=== PATIENT | female | born 1950 | race Caucasian/White ===

== ENCOUNTER 2017-10-09 01:25 | Inpatient (IN) | payer MEDICARE, OTHER ==
[2017-10-09] MEDS ORDERED: LISINOPRIL 10 MG TABLET PO ONE (01:32)
--- NOTE | 2017-10-09 01:36 | ER Document Report ---
ED General - General Stated Complaint: ALTERED MENTAL STATUS Time Seen by Provider: 10/09/17 01:31 Cannot obtain history due to: Altered mental status Notes: Patient is a 66-year-old woman with a past medical history of bipolar disorder, hypertension, who presents by EMS with confusion. The patient struggles to provide any meaningful history other than to repeatedly state "help me please". Apparently she has been doing a cleanout prep for an upcoming colonoscopy. Staff from the EMS service reports that when he got to the house patient appeared somewhat confused, initial blood pressure was markedly elevated at 260 systolic. She received labetalol in the field in route to the hospital. TRAVEL OUTSIDE OF THE [place] IN LAST 30 DAYS: No - Related Data Allergies/Adverse Reactions: No Known Allergies Allergy (Verified 11/16/15 13:06) Past Medical History - General Information source: Patient, Emergency Med Personnel Cannot obtain history due to: Altered mental status - Social History Smoking Status: Never Smoker Frequency of alcohol use: None Drug Abuse: None Lives with: Alone Family History: Reviewed & Not Pertinent - Past Medical History Cardiac Medical History: Reports: Hx Hypertension - MEDICATED Denies: Hx Coronary Artery Disease, Hx Heart Attack Pulmonary Medical History: Denies: Hx Asthma, Hx Bronchitis, Hx COPD, Hx Pneumonia Neurological Medical History: Denies: Hx Cerebrovascular Accident, Hx Seizures Endocrine Medical History: Reports: Hx Diabetes Mellitus Type 1 GI Medical History: Denies: Hx Ulcer Musculoskeltal Medical History: Reports Hx Arthritis Psychiatric Medical History: Reports: Hx Bipolar Disorder, Hx Depression - MANIC DEPRESSIVE Past Surgical History: Reports: Hx Hysterectomy, Hx Thyroid Surgery. Denies: Hx Mastectomy, Hx Open Heart Surgery, Hx Pacemaker - Immunizations Hx Diphtheria, Pertussis, Tetanus Vaccination: Yes Hx Pneumococcal Vaccination: 09/11/09 Review of Systems - Review of Systems Notes: Constitutional: Negative for fever. HENT: Negative for sore throat. Eyes: Negative for visual changes. Cardiovascular: Negative for chest pain. Respiratory: Negative for shortness of breath. Gastrointestinal: Negative for abdominal pain, vomiting or diarrhea. Genitourinary: Negative for dysuria. Musculoskeletal: Negative for back pain. Skin: Negative for rash. Neurological: Negative for headaches, weakness or numbness. 10 point ROS negative except as marked above and in HPI. Physical Exam - Vital signs Vitals: Temp 97.7 F 10/09/17 01:52 Interpretation: Hypertensive Notes: PHYSICAL EXAMINATION: GENERAL: Appears somewhat confused but in no acute distress. HEAD: Atraumatic, normocephalic. EYES: Pupils equal round and reactive to light, extraocular movements intact, sclera anicteric, conjunctiva are normal. ENT: nares patent, oropharynx clear without exudates. Moderately dry mucous membranes. NECK: Normal range of motion, supple without lymphadenopathy LUNGS: Breath sounds clear to auscultation bilaterally and equal. No wheezes rales or rhonchi. HEART: Regular rate and rhythm without murmurs ABDOMEN: Soft, nontender, normoactive bowel sounds. No guarding, no rebound. No masses appreciated. EXTREMITIES: Normal range of motion, no pitting or edema. No cyanosis. NEUROLOGICAL: Face symmetric. Tongue protrudes midline. Extraocular motions intact. Pupils are 2 mm and equally reactive. Delayed speech but no expressive or receptive aphasia or dysarthria. 5 out of 5 strength in both the distal and proximal upper and lower extremities bilaterally. Sensation is grossly intact throughout. Finger to nose testing normal. Pronator drift normal. PSYCH: Anxious, oriented to person, place and year SKIN: Warm, Dry, normal turgor, no rashes or lesions noted. Course - Re-evaluation Re-evalutation: 10/09/17 01:33 Patient presents with altered mental status, no focal neurologic deficits on exam, and a stroke scale 0. Initial blood pressures were markedly elevated at 260 systolic. Patient received IV labetalol in the field and presents with initial systolic of 210. She denies any focal complaints. Denies any chest pain, shortness of breath, abdominal pain and vomiting. Will obtain labs, CT head, provide home meds, and reassess. 10/09/17 03:15 Patient's labs demonstrate severe hyponatremia at 123 and given the context of her recent prep likely secondary to dilution. She has been started on sodium repletion with normal saline at 250 cc/h to avoid overcorrection. Given her altered mental status and the degree of the hyponatremia she has been admitted to the hospitalist service with Dr. Lan. Vomiting has been resolved after receiving IV haloperidol. - Vital Signs Vital signs: Temp Pulse Resp BP Pulse Ox 97.7 F 10/09/17 01:52 - Laboratory Result Diagrams: 10/09/17 01:47 01/29/18 01:47 Laboratory results interpreted by me: 10/09/17 10/09/17 01:47 01:47 Sodium 123.9 L Potassium 3.3 L Chloride 93 L Carbon Dioxide 20 L Glucose 145 H Magnesium 1.3 L AST 40 H - Diagnostic Test Radiology reviewed: Image reviewed, Reports reviewed Radiology results interpreted by me: 10/09/17 04:22 CT head: No acute intracranial bleed - EKG Interpretation by Me Additional EKG results interpreted by me: 10/09/17 04:22 Normal sinus rhythm. Rate 60. No ST elevations or depressions. QTC is 424. Discharge - Discharge Clinical Impression: Hyponatremia Altered mental status Qualifiers: Altered mental status type: stupor Qualified Code(s): R40.1 - Stupor Condition: Fair Disposition: ADMITTED INPATIENT [facility] Admitted: Telemetry
[2017-10-09] MEDS ORDERED: HALOPERIDOL LACTATE INJ 5 MG/1 ML VIAL IV ONE (01:50)
[2017-10-09 01:59] LABS: ABSOLUTE EOSINOPHILS # (AUTO) 0.1 10^3/uL (0.0-0.6); ABSOLUTE LYMPHOCYTES (AUTO) 1.5 10^3/uL (0.5-4.7); ABSOLUTE MONOCYTES (AUTO) 0.6 10^3/uL (0.1-1.4); ABSOLUTE NEUT (AUTO) 6.6 10^3/uL (1.7-8.2); BASOPHILS % (AUTO) 0.3 % (0-2); EOSINOPHILS % (AUTO) 1.7 % (0-6); HEMATOCRIT 37.7 % (36.0-47.0); HEMOGLOBIN 13.2 g/dL (12.0-15.5); LYMPHOCYTES % (AUTO) 16.8 % (13-45); MEAN CORPUSCULAR HEMOGLOBIN 30.5 pg (27.0-33.4); MEAN CORPUSCULAR HGB CONC 34.9 g/dL (32.0-36.0); MEAN CORPUSCULAR VOLUME 88 fl (80-97); MONOCYTES % (AUTO) 6.6 % (3-13); PLATELET COUNT 198 10^3/uL (150-450); RED BLOOD COUNT 4.31 10^6/uL (3.72-5.28); RED CELL DISTRIBUTION WIDTH 12.1 % (11.5-14.0); SEGMENTED NEUTROPHILS % (AUTO) 74.6 % (42-78); TOTAL CELLS COUNTED % (AUTO) 100 %; WHITE BLOOD COUNT 8.8 10^3/uL (4.0-10.5)
[2017-10-09 02:24] LABS: ALANINE AMINOTRANSFERASE 32 U/L (9-52); ALBUMIN 4.2 g/dL (3.5-5.0); ALKALINE PHOSPHATASE 80 U/L (38-126); ANION GAP 11 (5-19); ASPARTATE AMINO TRANSFERASE 40 U/L (14-36); BILIRUBIN,DIRECT 0.1 mg/dL (0.0-0.4); BILIRUBIN,TOTAL 0.4 mg/dL (0.2-1.3); BLOOD UREA NITROGEN 13 mg/dL (7-20); CALCIUM 8.5 mg/dL (8.4-10.2); CARBON DIOXIDE 20 mmol/L (22-30); CHLORIDE 93 mmol/L (98-107); GLUCOSE 145 mg/dL (75-110); POTASSIUM 3.3 mmol/L (3.6-5.0); SODIUM 123.9 mmol/L (137-145); TOTAL PROTEIN 6.9 g/dL (6.3-8.2)
--- NOTE | 2017-10-09 02:29 | RADIOLOGY REPORT (SQ) ---
EXAM DESCRIPTION: CT HEAD WITHOUT CLINICAL HISTORY: ams COMPARISON: None available TECHNIQUE: Axial CT of the head obtained from the skull apex to the skull base without contrast. FINDINGS: No acute intracranial hemorrhage identified. No mass, mass effect, shift of the midline, abnormal extra-axial fluid collection or CT evidence of acute ischemic change identified. The ventricular system and sulcal spaces are mildly enlarged compatible with mild cerebral atrophy. Scattered areas of hypodensity throughout the supratentorial white matter are nonspecific and may be related to chronic small vessel ischemic change. Mild mucosal thickening of the right maxillary sinus. Mastoid air cells are well aerated. No skull fracture identified. Visualized orbits and globes are unremarkable. Atherosclerotic calcification of the intracranial internal carotid arteries. DLP:1162.97 mGy-cm IMPRESSION: 1. No acute intracranial abnormality by CT criteria. This exam was performed according to our departmental dose-optimization program, which includes automated exposure control, adjustment of the mA and/or kV according to patient size and/or use of iterative reconstruction technique.
[2017-10-09] MEDS ORDERED: NORMAL SALINE 1000 ML 1,000 ML IV ONE ×2 (02:37→03:35)
[2017-10-09 02:49] LABS: AMORPHOUS SEDIMENT,URINE TRACE /HPF; APPEARANCE,URINE CLEAR; BILIRUBIN,URINE NEGATIVE (NEGATIVE); COLOR,URINE YELLOW; GLUCOSE, URINE NEGATIVE (NEGATIVE); KETONES,URINE NEGATIVE (NEGATIVE); LEUKOCYTE ESTERASE,URINE NEGATIVE (NEGATIVE); NITRITE,URINE NEGATIVE (NEGATIVE); PROTEIN,URINE NEGATIVE (NEGATIVE); URINE SPECIFIC GRAVITY 1.008; UROBILINOGEN,URINE NEGATIVE mg/dL (<2.0)
[2017-10-09] MEDS ORDERED: ZOLPIDEM TARTRATE 5 MG TABLET PO PRN (03:23)
[2017-10-09] MEDS ORDERED: ACETAMINOPHEN 325 MG TABLET PO PRN ×2 (03:23→14:00)
--- NOTE | 2017-10-09 03:51 | PDOC H&P ---
History of Present Illness Admission Date/PCP: 10/09/17 03:24 Patient complains of: Dizziness History of Present Illness: ALBERTO NOLAN is a 66 year old female with a prior history of bipolar disorder and colonic polyps. Apparently she was due for surveillance colonoscopy and so was on prep for the procedure. It is unclear if she stopped taking her medications. It is also unclear what she was taking as a bowel prep. The today she felt dizzy and so called EMS. She was brought to our emergency room with uncontrolled hypertension. On further evaluation it was found that she had significant hyponatremia as well as mild hypokalemia. Patient's blood pressure was controlled with labetalol and lisinopril. She is referred to us for correction of her electrolyte disturbance. Past Medical History Past Medical History: Her past medical history is obtained through review of our medical records Cardiac Medical History: Reports: Hypertension - MEDICATED Denies: Coronary Artery Disease, Myocardial Infarction Pulmonary Medical History: Denies: Asthma, Bronchitis, Chronic Obstructive Pulmonary Disease (COPD), Pneumonia Neurological Medical History: Denies: Seizures Endocrine Medical History: Reports: Hypothyroidism Musculoskeltal Medical History: Reports: Arthritis Psychiatric Medical History: Reports: Bipolar Disorder, Depression - MANIC DEPRESSIVE Hematology: Reports: Anemia - IRON INFUSION THROUGH PORT A CATH Q 2 MONTHS Denies: Sickle Cell Disease Past Surgical History Past Surgical History: Reports: Hysterectomy, Other - Polypectomy Denies: Amputation, Mastectomy, Pacemaker Social History Information Source: Patient, [facility] Records Lives with: Alone Smoking Status: Unknown if Ever Smoked Frequency of Alcohol Use: None Hx Recreational Drug Use: No Drugs: None Hx Prescription Drug Abuse: No - Advance Directive Resuscitation Status: Full Code Family History Family History: Reviewed & Not Pertinent Parental Family History Reviewed: No - Patient mental status precludes review with family history Children Family History Reviewed: No Sibling(s) Family History Reviewed.: No Medication/Allergy Home Medications: Lisinopril [Prinivil 10 mg Tablet] 10 mg PO DAILY 01/05/12 Trazodone HCl 100 mg PO QHS 01/05/12 Citalopram Hydrobromide [Celexa 10 mg Tablet] 10 mg PO DAILY 01/23/13 Aripiprazole [Abilify 20 mg Tablet] 20 mg PO DAILY 06/03/13 Multivitamin [Multivitamins] 1 each PO DAILY 11/16/15 Levothyroxine Sodium [Synthroid 0.112 mg Tablet] 112 mcg PO QAM 02/18/16 Besifloxacin HCl [Besivance] 5 ml OP ASDIR PRN 02/23/16 Difluprednate [Durezol] 5 ml OP ASDIR PRN 02/23/16 Nepafenac [Ilevro] 3 ml OP ASDIR PRN 02/23/16 Allergies/Adverse Reactions: No Known Allergies Allergy (Verified 11/16/15 13:06) Review of Systems ROS unobtainable: Due to mental status Physical Exam Vital Signs: Temp Pulse Resp BP Pulse Ox 97.7 F 10/09/17 01:52 General appearance: PRESENT: no acute distress, cooperative, well-developed, well-nourished, other - Answers questions yes or no and does not engage in conversation Head exam: PRESENT: atraumatic, normocephalic Eye exam: PRESENT: EOMI, PERRLA. ABSENT: nystagmus Ear exam: PRESENT: normal external ear exam Mouth exam: PRESENT: moist, tongue midline Neck exam: ABSENT: carotid bruit, JVD, lymphadenopathy, meningismus, thyromegaly Respiratory exam: PRESENT: clear to auscultation felicity. ABSENT: rales, rhonchi, wheezes Cardiovascular exam: PRESENT: RRR. ABSENT: diastolic murmur, rubs, systolic murmur GI/Abdominal exam: PRESENT: normal bowel sounds, soft. ABSENT: distended, guarding, mass, organolmegaly, rebound, tenderness Rectal exam: PRESENT: deferred Extremities exam: PRESENT: full ROM. ABSENT: calf tenderness, clubbing, pedal edema Neurological exam: PRESENT: alert, altered, awake. ABSENT: aphasic Psychiatric exam: PRESENT: flat affect. ABSENT: suicidal ideation Focused psych exam: PRESENT: other - Psychomotor retardation Skin exam: PRESENT: dry, intact, warm. ABSENT: cyanosis, rash Results Laboratory Results: 10/09/17 10/09/17 10/09/17 01:47 01:47 01:47 WBC 8.8 Hgb 13.2 Hct 37.7 Plt Count 198 Sodium 123.9 L Potassium 3.3 L Chloride 93 L Carbon Dioxide 20 L Anion Gap 11 BUN 13 Creatinine 0.81 Glucose 145 H Serum Osmolality Pending Calcium 8.5 Magnesium AST 40 H ALT 32 Alkaline Phosphatase 80 Total Protein 6.9 Albumin 4.2 Ur Leukocyte Esterase Urine Osmolality 10/09/17 10/09/17 10/09/17 01:47 02:27 02:27 WBC Hgb Hct Plt Count Sodium Potassium Chloride Carbon Dioxide Anion Gap BUN Creatinine Glucose Serum Osmolality Calcium Magnesium Pending AST ALT Alkaline Phosphatase Total Protein Albumin Ur Leukocyte Esterase NEGATIVE Urine Osmolality Pending Impressions: Head CT 10/09/17 01:31 IMPRESSION: 1. No acute intracranial abnormality by CT criteria. This exam was performed according to our departmental dose-optimization program, which includes automated exposure control, adjustment of the mA and/or kV according to patient size and/or use of iterative reconstruction technique. Assessment & Plan - Diagnosis (1) HTN (hypertension) Qualifiers: Hypertension type: essential hypertension Qualified Code(s): I10 - Essential (primary) hypertension Is this a current diagnosis for this admission?: Yes (2) Hypokalemia due to loss of potassium Is this a current diagnosis for this admission?: Yes (3) Mental health problem Is this a current diagnosis for this admission?: Yes (4) Hyponatremia Is this a current diagnosis for this admission?: Yes (5) Altered mental status Qualifiers: Altered mental status type: stupor Qualified Code(s): R40.1 - Stupor Is this a current diagnosis for this admission?: Yes - Time Time Spent: 30 to 50 Minutes - Inpatient Certification Based on my medical assessment, after consideration of the patient's comorbidities, presenting symptoms, or acuity I expect that the services needed warrant INPATIENT care.: Yes I certify that my determination is in accordance with my understanding of Medicare's requirements for reasonable and necessary INPATIENT services [42 CFR 412.3e].: Yes Medical Necessity: Significant Comorbidiites Make Outpatient Treatment Too Risky , Need Close Monitoring Due to Risk of Patient Decompensation, Need For IV Fluids, Need for Neurological Checks - Plan Summary Plan Summary: Patient will be admitted to our IMCU unit. We will restrict her oral fluids and give her isotonic saline. She will receive potassium orally. Should she need magnesium replacement she will receive this as well DVT prophylaxis with low molecular weight heparin Anticipated length of stay is greater than 2 midnights
[2017-10-09] MEDS ORDERED: POTASSI CL 20 MEQ/50 ML RIDER 20 MEQ/50 ML RTUPB IV ONE (04:18)
[2017-10-09] MEDS: MAGNESIUM SULFATE/D5W 1 GM/100 ML RTUPB IV SCH ×2 (05:19→06:32)
--- NOTE | 2017-10-09 07:53 | EKG REPORT ---
SEVERITY:- NORMAL ECG - SINUS RHYTHM : Confirmed by: Antonio Jackson MD 09-Oct-2017 07:52:40
[2017-10-09 09:34] LABS: ANION GAP 12 (5-19); BLOOD UREA NITROGEN 10 mg/dL (7-20); CALCIUM 8.7 mg/dL (8.4-10.2); CARBON DIOXIDE 18 mmol/L (22-30); CHLORIDE 94 mmol/L (98-107); GLUCOSE 149 mg/dL (75-110); MAGNESIUM 1.9 mg/dL (1.6-2.3); POTASSIUM 3.6 mmol/L (3.6-5.0); SODIUM 124.1 mmol/L (137-145)
[2017-10-09] MEDS: ENOXAPARIN SODIUM INJ 40 MG/0.4 ML DISP.SYRIN SUBCUT SCH (09:48)
[2017-10-09] MEDS: FAMOTIDINE 20 MG TABLET PO SCH ×2 (09:49→21:06)
[2017-10-09] MEDS: DOCUSATE SODIUM 100 MG CAPSULE PO SCH (09:53)
--- NOTE | 2017-10-09 11:36 | PDOC PROGRESS REPORT ---
Subjective Progress Note for:: 10/09/17 Subjective:: The patient is resting in her bed. She is quite anxious this morning. Nursing staff reports that she has been drinking quite a bit of water and his artery drink 2 pictures. They were not aware that she had been placed on a fluid restriction. The patient states that she needs something for her nerves. She denies fever chills. No chest pain, shortness of breath or heart palpitations. No nausea, vomiting or diarrhea. No dysuria, frequency or hematuria. Reason For Visit: HYPONATREMIA, HYPOKALEMIA Physical Exam Vital Signs: Temp Pulse Resp BP Pulse Ox 98.2 F 62 18 174/70 H 98 10/09/17 08:39 10/09/17 08:39 10/09/17 08:39 10/09/17 08:39 10/09/17 08:39 Intake & Output 10/08/17 10/09/17 10/10/17 06:59 06:59 06:59 Weight 85.5 kg General appearance: PRESENT: no acute distress, well-developed, well-nourished, other - She appears to be somewhat anxious Head exam: PRESENT: atraumatic, normocephalic Mouth exam: PRESENT: moist, tongue midline Respiratory exam: PRESENT: clear to auscultation felicity. ABSENT: rales, rhonchi, wheezes Cardiovascular exam: PRESENT: RRR. ABSENT: diastolic murmur, rubs, systolic murmur GI/Abdominal exam: PRESENT: normal bowel sounds, soft. ABSENT: distended, guarding, mass, organolmegaly, rebound, tenderness Extremities exam: PRESENT: full ROM. ABSENT: calf tenderness, clubbing, pedal edema Neurological exam: PRESENT: alert, awake, oriented to person, oriented to place , oriented to time, oriented to situation, CN II-XII grossly intact. ABSENT: motor sensory deficit Psychiatric exam: PRESENT: agitated, anxious Skin exam: PRESENT: dry, intact, warm. ABSENT: cyanosis, rash Results Laboratory Results: 10/09/17 09:07 10/09/17 10/09/17 10/09/17 04:45 09:07 09:07 Sodium 124.1 L Potassium 3.6 Chloride 94 L Carbon Dioxide 18 L Anion Gap 12 BUN 10 Creatinine 0.68 Est GFR ( Amer) > 60 Est GFR (Non-Af Amer) > 60 Glucose 149 H Serum Osmolality 254 L Calcium 8.7 Magnesium 1.9 TSH 0.15 L 10/09/17 09:07 NT-Pro-B Natriuret Pep 237 Impressions: Head CT 10/09/17 01:31 IMPRESSION: 1. No acute intracranial abnormality by CT criteria. This exam was performed according to our departmental dose-optimization program, which includes automated exposure control, adjustment of the mA and/or kV according to patient size and/or use of iterative reconstruction technique. Assessment & Plan - Diagnosis (1) Encephalopathy Is this a current diagnosis for this admission?: Yes Plan: The admitting physician stated that she was altered. This was likely due to severe electrolyte abnormalities and her hyponatremia. She is awake alert and oriented today and seems better after her electrolytes have been repleted. However she is significantly anxious today. (2) Hyponatremia Is this a current diagnosis for this admission?: Yes Plan: It looks like the patient may have issues with polydipsia. I did not have to complete the algorithm. She has been placed on a 1000 mL fluid restriction. I have asked the nursing staff to start this and they are now aware. A urine sodium has been ordered. 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 (3) Bipolar disorder Is this a current diagnosis for this admission?: Yes Plan: The patient is quite anxious this morning. I am going to give her a one-time dose of 0.5 milligrams of IV Ativan. I am going to start her chest in the hospital on 2 mg of by mouth Haldol twice daily. I have reconciled her medications and we will start her back on her Trileptal and citalopram. (4) Hypertensive urgency Is this a current diagnosis for this admission?: Yes Plan: Improved. (5) Hypokalemia due to loss of potassium Is this a current diagnosis for this admission?: Yes Plan: She was undergoing a bowel prep. This is been repleted and resolved. (6) Hypomagnesemia Is this a current diagnosis for this admission?: Yes Plan: This will be repleted today with magnesium sulfate. 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 (8) Obesity (BMI 30-39.9) Is this a current diagnosis for this admission?: Yes Plan: The patient's BMI is 36.8. Dietary discretion is advised and she has been placed on a fluid restriction. (9) Full code status Is this a current diagnosis for this admission?: Yes - Time Time Spent with patient: 25-34 minutes - Inpatient Certification Medical Necessity: Other - The patient remains in observation in the hospital. This will be her first midnight. Hopefully we can correct her electrolyte abnormalities over the next 24 hours. She hopefully can be discharged in the morning but her sodium is too low at this point to send home for now.
[2017-10-09] MEDS ORDERED: LORAZEPAM INJ 2 MG/1 ML VIAL IV ONE (12:00)
[2017-10-09] MEDS ORDERED: INFLUENZA ADLT QUAD (36MOS+) 2017-18 VAC 0.5 ML SYR IM PRN (13:44)
--- NOTE | 2017-10-09 14:19 | Physician Advisory Note ---
Physician Advisor ProgressNote .: Pursuant to the plan for [facility], I have reviewed the medical record for this patient. Physician Advisor Statement: Status: Medicare pt, appropriate to bring in as obs today, change to Inpatient tomorrow if clinically not safe for d/c before 2nd MN. Thanks! CK
[2017-10-09] MEDS ORDERED: (PENDING PHARMACY ID) (Oxcarbazepine [Trileptal] 300 MG) PO SCH ×2 (18:00)
[2017-10-09] MEDS: OXCARBAZEPINE 150 MG TABLET PO SCH (21:05)
[2017-10-09] MEDS: HALOPERIDOL 2 MG TABLET PO SCH (21:06)
[2017-10-09] MEDS ORDERED: TRAZODONE HCL 50 MG TABLET PO SCH (22:00)
[2017-10-10] MEDS ORDERED: LEVOTHYROXINE SODIUM 0.025 MG TABLET PO SCH (06:00)
[2017-10-10] MEDS ORDERED: LEVOTHYROXINE SODIUM 0.1 MG TABLET PO SCH (06:00)
[2017-10-10] MEDS ORDERED: (PENDING PHARMACY ID) (Levothyroxine Sodium [Synthroid] 125 MCG) PO SCH (06:00)
[2017-10-10 06:08] LABS: ABSOLUTE LYMPHOCYTES (AUTO) 1.1 10^3/uL (0.5-4.7); ABSOLUTE MONOCYTES (AUTO) 0.5 10^3/uL (0.1-1.4); ABSOLUTE NEUT (AUTO) 3.6 10^3/uL (1.7-8.2); BASOPHILS % (AUTO) 0.2 % (0-2); EOSINOPHILS % (AUTO) 0.8 % (0-6); HEMATOCRIT 36.6 % (36.0-47.0); HEMOGLOBIN 12.9 g/dL (12.0-15.5); LYMPHOCYTES % (AUTO) 21.5 % (13-45); MEAN CORPUSCULAR HEMOGLOBIN 30.4 pg (27.0-33.4); MEAN CORPUSCULAR HGB CONC 35.3 g/dL (32.0-36.0); MEAN CORPUSCULAR VOLUME 86 fl (80-97); MONOCYTES % (AUTO) 9.3 % (3-13); PLATELET COUNT 216 10^3/uL (150-450); RED BLOOD COUNT 4.25 10^6/uL (3.72-5.28); RED CELL DISTRIBUTION WIDTH 11.9 % (11.5-14.0); SEGMENTED NEUTROPHILS % (AUTO) 68.2 % (42-78); TOTAL CELLS COUNTED % (AUTO) 100 %; WHITE BLOOD COUNT 5.3 10^3/uL (4.0-10.5)
[2017-10-10 06:31] LABS: ANION GAP 10 (5-19); BLOOD UREA NITROGEN 15 mg/dL (7-20); CALCIUM 9.3 mg/dL (8.4-10.2); CARBON DIOXIDE 22 mmol/L (22-30); CHLORIDE 108 mmol/L (98-107); GLUCOSE 105 mg/dL (75-110); MAGNESIUM 2.3 mg/dL (1.6-2.3); POTASSIUM 3.7 mmol/L (3.6-5.0); SODIUM 140.1 mmol/L (137-145)
--- NOTE | 2017-10-10 09:48 | PDOC DISCHARGE SUMMARY ---
General - Admit/Disc Date/PCP Admission Date/Primary Care Provider: 10/09/17 03:24 Dr Claire Discharge Date: 10/10/17 - Discharge Diagnosis (1) Encephalopathy Is this a current diagnosis for this admission?: Yes Summary: Likely multifactorial secondary to severe hyponatremia as well as electrolyte disturbances. (2) Hyponatremia Is this a current diagnosis for this admission?: Yes Summary: [place] to be secondary to polydipsia. The patient was drinking a significant amount of water prior to this hospitalization. She was placed on a 1000 mL fluid restriction and her sodium level has normalized. (3) Bipolar disorder Is this a current diagnosis for this admission?: Yes Summary: She will resume her home regimen. (4) Hypertensive urgency Is this a current diagnosis for this admission?: Yes Summary: Resolved (5) Hypokalemia due to loss of potassium Is this a current diagnosis for this admission?: Yes Summary: Repleted and resolved (6) Hypomagnesemia Is this a current diagnosis for this admission?: Yes Summary: Repleted and resolved (7) Metabolic acidosis due to ethylene glycol Is this a current diagnosis for this admission?: Yes Summary: Resolved (8) Obesity (BMI 30-39.9) Is this a current diagnosis for this admission?: Yes Summary: Dietary discretion is advised (9) Full code status Is this a current diagnosis for this admission?: Yes - Additional Information Resuscitation Status: Full Code Discharge Diet: Regular, Other (Comments) - She needs a strict 15 mL fluid restriction at home. Discharge Activity: Activity As Tolerated, Balance Activity w/Rest, Slowly Increase Activity Home Medications: Citalopram Hydrobromide [Celexa 20 mg Tablet] 20 mg PO DAILY 10/09/17 Clobetasol Propionate [Temovate 0.05% Cream 15 gm] 1 applic TOP BID 10/09/17 Levothyroxine Sodium [Synthroid] 125 mcg PO Q6AM 10/09/17 Lisinopril [Zestril] 10 mg PO DAILY 10/09/17 Oxcarbazepine [Trileptal] 300 mg PO BID 10/09/17 Trazodone HCl [Desyrel] 100 mg PO QHS 10/09/17 History of Present Illness History of Present Illness: ALBERTO NOLAN is a 66 year old female who presented to the emergency room with altered mental status and dizziness. Hospital Course Hospital Course: The patient is a 66-year-old female with a known history of bipolar disorder and colonic polyps. She was due for her surveillance doing her bowel prep at home. She presented to the hospital with altered mental status and dizziness. She was found to have uncontrolled hypertension and multiple electrolyte abnormalities to include severe hyponatremia of 123, hypokalemia and hypomagnesemia. The patient was given IV labetalol and lisinopril with resolution of her hypertensive urgency. Her potassium and magnesium was repleted. Appropriate urine studies were done to evaluate her severe hyponatremia. Nursing staff noted that the patient was drinking a significant amount of water. She was even given a cold towel to put on her head and was sucking the water out of it. She was placed on 1000 mL fluid restriction with resolution of her hyponatremia. I have discussed this at length with the patient. I am recommending a 1500 mL fluid restriction going forward. She does state that she drinks quite a bit and drinks sodas throughout the day as well as water. I have advised her that her total fluid amount for the day should be no greater than 1500 mL's. She states that Dr. Claire who is a waistline joiner as her primary care provider. I am going to make her an appointment with him in follow-up. She also will need to call her GI doctor's office to figure out what to do about her colonoscopy. At this point maximum hospital benefit has been reached. All of her electrolytes are stable. Her blood pressure is stable. She will be discharged home today in stable condition. Physical Exam Vital Signs: Temp Pulse Resp BP Pulse Ox 98.2 F 78 18 135/68 H 100 10/10/17 07:08 10/10/17 07:08 10/10/17 07:08 10/10/17 07:08 10/10/17 07:08 Intake & Output 10/09/17 10/10/17 10/11/17 06:59 06:59 06:59 Intake Total 1716 Balance 1716 Weight 85 kg General appearance: PRESENT: no acute distress, well-developed, well-nourished Head exam: PRESENT: atraumatic, normocephalic Eye exam: PRESENT: conjunctiva pink, EOMI, PERRLA. ABSENT: scleral icterus Mouth exam: PRESENT: moist, tongue midline Neck exam: ABSENT: carotid bruit, JVD, lymphadenopathy, thyromegaly Respiratory exam: PRESENT: clear to auscultation felicity. ABSENT: rales, rhonchi, wheezes Cardiovascular exam: PRESENT: RRR. ABSENT: diastolic murmur, rubs, systolic murmur Pulses: PRESENT: normal dorsalis pedis pul Vascular exam: PRESENT: normal capillary refill GI/Abdominal exam: PRESENT: normal bowel sounds, soft. ABSENT: distended, guarding, mass, organolmegaly, rebound, tenderness Rectal exam: PRESENT: deferred Extremities exam: PRESENT: full ROM. ABSENT: calf tenderness, clubbing, pedal edema Musculoskeletal exam: PRESENT: ambulatory Neurological exam: PRESENT: alert, awake, oriented to person, oriented to place , oriented to time, oriented to situation, CN II-XII grossly intact. ABSENT: motor sensory deficit Psychiatric exam: PRESENT: appropriate affect, normal mood. ABSENT: homicidal ideation, suicidal ideation Skin exam: PRESENT: dry, intact, warm. ABSENT: cyanosis, rash Results Laboratory Results: 10/10/17 04:54 10/10/17 04:54 10/09/17 10/10/17 10/10/17 09:07 04:54 04:54 WBC 5.3 RBC 4.25 Hgb 12.9 Hct 36.6 MCV 86 MCH 30.4 MCHC 35.3 RDW 11.9 Plt Count 216 Seg Neutrophils % 68.2 Lymphocytes % 21.5 Monocytes % 9.3 Eosinophils % 0.8 Basophils % 0.2 Absolute Neutrophils 3.6 Absolute Lymphocytes 1.1 Absolute Monocytes 0.5 Absolute Eosinophils 0.0 Absolute Basophils 0.0 Sodium 140.1 Potassium 3.7 Chloride 108 H Carbon Dioxide 22 Anion Gap 10 BUN 15 Creatinine 1.03 Est GFR ( Amer) > 60 Est GFR (Non-Af Amer) 54 L Glucose 105 Calcium 9.3 Magnesium 2.3 TSH 0.15 L 10/09/17 09:07 NT-Pro-B Natriuret Pep 237 Impressions: Head CT 10/09/17 01:31 IMPRESSION: 1. No acute intracranial abnormality by CT criteria. This exam was performed according to our departmental dose-optimization program, which includes automated exposure control, adjustment of the mA and/or kV according to patient size and/or use of iterative reconstruction technique. Qualifiers PATEINT BEING DISCHARGED WITH ANY OF THE FOLLOWING DIAGNOSIS?: No Plan Discharge Plan: She will be discharged home today in stable condition. Time Spent: Greater than 30 Minutes
[2017-10-10] MEDS ORDERED: CITALOPRAM HYDROBROMIDE 20 MG TABLET PO SCH (10:00)
[2017-10-10] MEDS ORDERED: LISINOPRIL 10 MG TABLET PO SCH (10:00)
[2017-10-10 11:23] VITALS: BP 174/70
[2017-10-10] MEDS: FAMOTIDINE 20 MG TABLET PO SCH (11:26)
[2017-10-10] MEDS: HALOPERIDOL 2 MG TABLET PO SCH (11:26)
[2017-10-10] MEDS: DOCUSATE SODIUM 100 MG CAPSULE PO SCH (11:27)
[2017-10-10] MEDS: ENOXAPARIN SODIUM INJ 40 MG/0.4 ML DISP.SYRIN SUBCUT SCH (11:27)
[2017-10-10] MEDS: OXCARBAZEPINE 150 MG TABLET PO SCH (11:27)
== END 2017-10-10 11:46 | disposition home or self-care (01) | DRG 640 ==
LOC: ER 01:25 → EH 03:24 → 3W 08:14
PROVIDERS: ADMIT Internal Medicine; ATTEND Internal Medicine
DX: E87.1 Hypo-osmolality and hyponatremia (principal); G93.40 Encephalopathy, unspecified; E87.6 Hypokalemia; F31.9 Bipolar disorder, unspecified; I16.0 Hypertensive urgency; E83.42 Hypomagnesemia; E87.2 Acidosis; I10 Essential (primary) hypertension; M19.90 Unspecified osteoarthritis, unspecified site; E03.9 Hypothyroidism, unspecified; D64.9 Anemia, unspecified; Z60.2 Problems related to living alone; E66.9 Obesity, unspecified; Z68.36 Body mass index [BMI] 36.0-36.9, adult; Z79.899 Other long term (current) drug therapy; Z86.010 Personal history of colon polyps; Z90.710 Acquired absence of both cervix and uterus
CPT/HCPCS: 36415; 51701; 70450; 80048; 80053; 81001; 83735; 83880; 83930; 83935; 84300; 84443; 85025; 93005; 93010; 96374; 99285; J1630; J1650; J2060; J3475; J3490; J7030

== ENCOUNTER 2018-03-12 20:56 | Emergency (ER) | payer MEDICARE, OTHER ==
--- NOTE | 2018-03-12 22:14 | ER Document Report ---
ED Medical Screen (RME) - General Chief Complaint: Swollen Glands Stated Complaint: MONO/NECK SWELLING Time Seen by Provider: 03/12/18 22:08 Mode of Arrival: Ambulatory Information source: Patient Notes: Patient is a 67-year-old female with chief complaint of swollen glands, dizziness and left sided abdominal pain. Patient reports that she was diagnosed with mono last week by Dr. Fine. Patient is not taking any new medications. Patient reports that Dr. Fine told her there is no medication for mono however patient reports that she feels terrible and needs us to do something. Exam: Abdomen: Tenderness to palpation to left upper quadrant. Neck: Swollen lymph nodes bilaterally. Lungs: Lung sounds clear to auscultation bilaterally. I have greeted and performed a rapid initial assessment of this patient. A comprehensive ED assessment and evaluation of the patient, analysis of test results and completion of the medical decision making process will be conducted by additional ED providers. Dictation of this chart was performed using voice recognition software; therefore, there may be some unintended grammatical errors. TRAVEL OUTSIDE OF THE [place] IN LAST 30 DAYS: No - Related Data Allergies/Adverse Reactions: No Known Allergies Allergy (Verified 03/12/18 20:58) Past Medical History - Past Medical History Cardiac Medical History: Reports: Hx Hypertension - MEDICATED Denies: Hx Coronary Artery Disease, Hx Heart Attack Pulmonary Medical History: Denies: Hx Asthma, Hx Bronchitis, Hx COPD, Hx Pneumonia Neurological Medical History: Denies: Hx Cerebrovascular Accident, Hx Seizures Endocrine Medical History: Reports: Hx Diabetes Mellitus Type 1, Hx Hypothyroidism Renal/ Medical History: Denies: Hx Peritoneal Dialysis GI Medical History: Denies: Hx Ulcer Musculoskeltal Medical History: Reports Hx Arthritis Psychiatric Medical History: Reports: Hx Bipolar Disorder, Hx Depression - MANIC DEPRESSIVE Past Surgical History: Reports: Hx Hysterectomy, Hx Thyroid Surgery, Other - Polypectomy. Denies: Hx Mastectomy, Hx Open Heart Surgery, Hx Pacemaker - Immunizations Hx Diphtheria, Pertussis, Tetanus Vaccination: Yes History of Influenza Vaccine for 06/2017 - 11/2017 Season: Yes Influenza Administration Date for 06/2017 - 11/2017 Season: 08/02/17 Physical Exam - Vital signs Vitals: Temp Pulse Resp BP Pulse Ox 98.6 F 71 16 157/72 H 98 03/12/18 21:02 03/12/18 21:02 03/12/18 21:02 03/12/18 21:02 03/12/18 21:02 Course - Vital Signs Vital signs: Temp Pulse Resp BP Pulse Ox 98.6 F 71 16 157/72 H 98 03/12/18 21:02 03/12/18 21:02 03/12/18 21:02 03/12/18 21:02 03/12/18 21:02 Doctor's Discharge - Discharge Referrals: [facility]A F[facility] [employer] [employer] [Primary Care Provider] - Follow up as needed
[2018-03-13] MEDS ORDERED: DEXAMETHASONE 4 MG TABLET PO ONE (00:08)
--- NOTE | 2018-03-13 00:11 | ER Document Report ---
ED General - General Chief Complaint: Swollen Glands Stated Complaint: NECK SWELLING Time Seen by Provider: 03/12/18 22:08 Mode of Arrival: Ambulatory Notes: Patient is a 67-year-old female who presents with concerns of sore throat and swollen lymph nodes have been ongoing for the past 24 hours. The patient states that she was seen and diagnosed with mononucleosis several days ago by her primary care doctor. She states that she had formal laboratory testing to confirm this diagnosis. She states that at that time she did not have a swollen lymph nodes or sore throat but that they did start gradually over the last 24 hours. She notes a throbbing, aching, constant irritation to the back of her throat. She also notes that her lymph nodes have a mild, throbbing, constant pain. Has not tried anything to improve her symptoms. Nothing worsens her symptoms. She has not followed up with her primary doctor regarding her new concerns. She denies any fever, vomiting, chest pain or shortness of breath. TRAVEL OUTSIDE OF THE [place] IN LAST 30 DAYS: No - Related Data Allergies/Adverse Reactions: No Known Allergies Allergy (Verified 03/12/18 20:58) Past Medical History - General Information source: Patient - Social History Smoking Status: Never Smoker Chew tobacco use (# tins/day): No Frequency of alcohol use: None Drug Abuse: None Lives with: Family Family History: Reviewed & Not Pertinent Patient has suicidal ideation: No Patient has homicidal ideation: No - Past Medical History Cardiac Medical History: Reports: Hx Hypertension - MEDICATED Denies: Hx Coronary Artery Disease, Hx Heart Attack Pulmonary Medical History: Denies: Hx Asthma, Hx Bronchitis, Hx COPD, Hx Pneumonia Neurological Medical History: Denies: Hx Cerebrovascular Accident, Hx Seizures Endocrine Medical History: Reports: Hx Diabetes Mellitus Type 1, Hx Hypothyroidism Renal/ Medical History: Denies: Hx Peritoneal Dialysis GI Medical History: Denies: Hx Ulcer Musculoskeltal Medical History: Reports Hx Arthritis Psychiatric Medical History: Reports: Hx Bipolar Disorder, Hx Depression - MANIC DEPRESSIVE Past Surgical History: Reports: Hx Hysterectomy, Hx Thyroid Surgery, Other - Polypectomy. Denies: Hx Mastectomy, Hx Open Heart Surgery, Hx Pacemaker - Immunizations Hx Diphtheria, Pertussis, Tetanus Vaccination: Yes Hx Pneumococcal Vaccination: 09/11/09 Review of Systems - Review of Systems Notes: Constitutional: Negative for fever. HENT: Positive for sore throat. Eyes: Negative for visual changes. Cardiovascular: Negative for chest pain. Respiratory: Negative for shortness of breath. Gastrointestinal: Negative for abdominal pain, vomiting or diarrhea. Genitourinary: Negative for dysuria. Musculoskeletal: Negative for back pain. Skin: Negative for rash. Neurological: Negative for headaches, weakness or numbness. 10 point ROS negative except as marked above and in HPI. Physical Exam - Vital signs Vitals: Temp Pulse Resp BP Pulse Ox 98.6 F 71 16 157/72 H 98 03/12/18 21:02 03/12/18 21:02 03/12/18 21:02 03/12/18 21:02 03/12/18 21:02 Interpretation: Hypertensive Notes: PHYSICAL EXAMINATION: GENERAL: Well-appearing, well-nourished and in no acute distress. HEAD: Atraumatic, normocephalic. EYES: Pupils equal round and reactive to light, extraocular movements intact, sclera anicteric, conjunctiva are normal. ENT: nares patent, mild erythema to the posterior pharynx, uvula midline moist mucous membranes. NECK: Normal range of motion, bilateral anterior cervical lymphadenopathy that is tender to palpation LUNGS: Breath sounds clear to auscultation bilaterally and equal. No wheezes rales or rhonchi. HEART: Regular rate and rhythm without murmurs ABDOMEN: Soft, nontender, normoactive bowel sounds. No guarding, no rebound. No masses appreciated. EXTREMITIES: Normal range of motion, no pitting or edema. No cyanosis. NEUROLOGICAL: No focal neurological deficits. Moves all extremities spontaneously and on command. PSYCH: Normal mood, normal affect. SKIN: Warm, Dry, normal turgor, no rashes or lesions noted. Course - Re-evaluation Re-evalutation: 03/13/18 03:49 Presentation of several days of sore throat in an otherwise well-appearing patient. Patient has very had a positive mono test. History and exam are not consistent with a retropharyngeal abscess or peritonsillar abscess. Airway is patent. No difficulty handling oral secretions. Vitals within normal limits. Patient was treated with a dose of dexamethasone and advised on symptomatic care. At this time will discharge with return precautions and follow-up recommendations. Verbal discharge instructions given a the bedside and opportunity for questions given. Medication warnings reviewed. Patient is in agreement with this plan and has verbalized understanding of return precautions and the need for primary care follow-up in the next 24-72 hours. - Vital Signs Vital signs: Temp Pulse Resp BP Pulse Ox 98.6 F 61 16 173/81 H 100 03/12/18 21:02 03/13/18 00:36 03/13/18 00:36 03/13/18 00:36 03/13/18 00:36 Discharge - Discharge Clinical Impression: Mononucleosis, Cervical lymphadenopathy Condition: Good Disposition: HOME, SELF-CARE Additional Instructions: You were seen today for swollen lymph nodes and sore throat as well as feeling generally weak which is consistent with the diagnosis of mononucleosis. You have been given a dose of steroids here to help with some of the symptoms. Return if you become unable to tolerate fluids, have worsening pain, difficulty breathing or swallowing, or any other symptoms that are worrisome to you. These follow-up with your general doctor within the next 24-48 hours. Referrals: [facility] [employer] [employer] [Primary Care Provider] - Follow up as needed
[2018-03-13 00:38] VITALS: BP 173/81
== END 2018-03-13 00:38 | disposition home or self-care (01) ==
LOC: ER 20:56
DX: B27.90 Infectious mononucleosis, unspecified without complication (principal); J02.9 Acute pharyngitis, unspecified; R59.0 Localized enlarged lymph nodes; I10 Essential (primary) hypertension; E10.9 Type 1 diabetes mellitus without complications
CPT/HCPCS: 99283; A9270

== ENCOUNTER → 2018-06-25 | Outpatient (CLI) | payer MEDICARE, OTHER ==
[2018-06-25 17:04] LABS: ALANINE AMINOTRANSFERASE 36 U/L (9-52); ALBUMIN 4.2 g/dL (3.5-5.0); ALKALINE PHOSPHATASE 77 U/L (38-126); ANION GAP 11 (5-19); ASPARTATE AMINO TRANSFERASE 29 U/L (14-36); BILIRUBIN,DIRECT 0.1 mg/dL (0.0-0.4); BILIRUBIN,TOTAL 0.3 mg/dL (0.2-1.3); BLOOD UREA NITROGEN 19 mg/dL (7-20); CALCIUM 9.2 mg/dL (8.4-10.2); CARBON DIOXIDE 29 mmol/L (22-30); CHLORIDE 98 mmol/L (98-107); GLUCOSE 113 mg/dL (75-110); POTASSIUM 4.6 mmol/L (3.6-5.0); SODIUM 137.9 mmol/L (137-145); TOTAL PROTEIN 6.7 g/dL (6.3-8.2)
== END ==
LOC: OD 14:35
PROVIDERS: ATTEND Obstetrics & Gynecology
DX: R91.1 Solitary pulmonary nodule (principal)
CPT/HCPCS: 36415; 80053

== ENCOUNTER 2019-03-17 16:46 | Emergency (ER) | payer MEDICARE, OTHER ==
--- NOTE | 2019-03-17 18:15 | ER Document Report ---
ED Medical Screen (RME) - General Chief Complaint: Chest Congestion Stated Complaint: COUGH,CONGESTION Time Seen by Provider: 03/17/19 18:08 Primary Care Provider: SALAZAR FINE MD [Primary Care Provider] - Follow up as needed Mode of Arrival: Ambulatory Information source: Patient Notes: Patient presents to the emergency department with complaints of productive cough headache and neck pain for the past week. Reports she went out with a friend that had a cold and she caught it. Patient reports she is been taking some cough medicine with codeine to help control the cough but all it does not make her sleepy make her feel loopy. No complaints of fever vomiting diarrhea. Patient denies chest pain reports it only hurts when she coughs. I have greeted and performed a rapid initial assessment of this patient. A comprehensive ED assessment and evaluation of the patient, analysis of test results and completion of the medical decision making process will be conducted by additional ED providers. Dictation of this chart was performed using voice recognition software; therefore, there may be some unintended grammatical errors. TRAVEL OUTSIDE OF THE [place] IN LAST 30 DAYS: No - Related Data Allergies/Adverse Reactions: No Known Allergies Allergy (Verified 03/17/19 16:47) Past Medical History - Past Medical History Cardiac Medical History: Reports: Hx Hypertension - MEDICATED Denies: Hx Coronary Artery Disease, Hx Heart Attack Pulmonary Medical History: Denies: Hx Asthma, Hx Bronchitis, Hx COPD, Hx Pneumonia Neurological Medical History: Denies: Hx Cerebrovascular Accident, Hx Seizures Endocrine Medical History: Reports: Hx Diabetes Mellitus Type 1, Hx Hypothyroidism Renal/ Medical History: Denies: Hx Peritoneal Dialysis GI Medical History: Denies: Hx Ulcer Musculoskeltal Medical History: Reports Hx Arthritis Psychiatric Medical History: Reports: Hx Bipolar Disorder, Hx Depression - MANIC DEPRESSIVE Past Surgical History: Reports: Hx Hysterectomy, Hx Thyroid Surgery, Other - Polypectomy. Denies: Hx Mastectomy, Hx Open Heart Surgery, Hx Pacemaker - Immunizations Hx Diphtheria, Pertussis, Tetanus Vaccination: Yes History of Influenza Vaccine for 06/2017 - 11/2017 Season: Yes Influenza Administration Date for 06/2017 - 11/2017 Season: 08/02/17 Physical Exam - Vital signs Vitals: Temp Pulse Resp BP Pulse Ox 98.0 F 70 18 175/91 H 98 03/17/19 17:05 03/17/19 17:05 03/17/19 17:05 03/17/19 17:05 03/17/19 17:05 Course - Vital Signs Vital signs: Temp Pulse Resp BP Pulse Ox 98.0 F 70 18 175/91 H 98 03/17/19 17:05 03/17/19 17:05 03/17/19 17:05 03/17/19 17:05 03/17/19 17:05 Doctor's Discharge - Discharge Referrals: SALAZAR FINE MD [Primary Care Provider] - Follow up as needed
--- NOTE | 2019-03-17 18:57 | RADIOLOGY REPORT (SQ) ---
EXAM DESCRIPTION: CHEST 2 VIEWS COMPLETED DATE/TIME: 03/17/2019 6:40 pm REASON FOR STUDY: cough COMPARISON: Chest radiographs 06/03/2013 EXAM PARAMETERS: NUMBER OF VIEWS: two views TECHNIQUE: Digital Frontal and Lateral radiographic views of the chest acquired. RADIATION DOSE: NA LIMITATIONS: none FINDINGS: LUNGS AND PLEURA: No opacities, masses or pneumothorax. No pleural effusion. MEDIASTINUM AND HILAR STRUCTURES: No masses or contour abnormalities. HEART AND VASCULAR STRUCTURES: Heart normal size. No evidence for failure. BONES: No acute findings. HARDWARE: None in the chest. OTHER: Surgical clips right upper quadrant. IMPRESSION: NO ACUTE RADIOGRAPHIC FINDING IN THE CHEST. TECHNICAL DOCUMENTATION: JOB ID: [id number] [employer]- All Rights Reserved Reading location - IP/workstation name: [email or web address]
[2019-03-17 19:00] LABS: ABSOLUTE EOSINOPHILS # (AUTO) 0.1 10^3/uL (0.0-0.6); ABSOLUTE LYMPHOCYTES (AUTO) 1.3 10^3/uL (0.5-4.7); ABSOLUTE MONOCYTES (AUTO) 0.3 10^3/uL (0.1-1.4); ABSOLUTE NEUT (AUTO) 2.7 10^3/uL (1.7-8.2); BASOPHILS % (AUTO) 0.4 % (0-2); EOSINOPHILS % (AUTO) 2.8 % (0-6); HEMATOCRIT 37.1 % (36.0-47.0); HEMOGLOBIN 12.7 g/dL (12.0-15.5); LYMPHOCYTES % (AUTO) 28.8 % (13-45); MEAN CORPUSCULAR HEMOGLOBIN 30.3 pg (27.0-33.4); MEAN CORPUSCULAR HGB CONC 34.3 g/dL (32.0-36.0); MEAN CORPUSCULAR VOLUME 88 fl (80-97); PLATELET COUNT 226 10^3/uL (150-450); RED BLOOD COUNT 4.21 10^6/uL (3.72-5.28); RED CELL DISTRIBUTION WIDTH 12.4 % (11.5-14.0); TOTAL CELLS COUNTED % (AUTO) 100 %; WHITE BLOOD COUNT 4.5 10^3/uL (4.0-10.5)
[2019-03-17 19:19] LABS: ALANINE AMINOTRANSFERASE 32 U/L (9-52); ALBUMIN 4.4 g/dL (3.5-5.0); ALKALINE PHOSPHATASE 97 U/L (38-126); ANION GAP 8 (5-19); ASPARTATE AMINO TRANSFERASE 31 U/L (14-36); BILIRUBIN,DIRECT 0.1 mg/dL (0.0-0.4); BILIRUBIN,TOTAL 0.2 mg/dL (0.2-1.3); BLOOD UREA NITROGEN 16 mg/dL (7-20); CALCIUM 9.4 mg/dL (8.4-10.2); CARBON DIOXIDE 31 mmol/L (22-30); CHLORIDE 99 mmol/L (98-107); GLUCOSE 91 mg/dL (75-110); SODIUM 137.6 mmol/L (137-145); TOTAL PROTEIN 7.1 g/dL (6.3-8.2)
[2019-03-17] MEDS ORDERED: IPRATROPIUM/ALBUTEROL 0.5-2.5 MG/3 ML AMPUL NEB ONE (19:36)
[2019-03-17] MEDS ORDERED: DOXYCYCLINE HYCLATE 100 MG TABLET PO ONE (19:37)
[2019-03-17] MEDS ORDERED: ALBUTEROL SULFATE HFA (90 MCG/PUFF) 8 GM MDI (1 MDI/ER DISP) IH PRN (19:38)
--- NOTE | 2019-03-17 19:39 | ER Document Report ---
ED General - General Chief Complaint: Chest Congestion Stated Complaint: COUGH,CONGESTION Time Seen by Provider: 03/17/19 18:08 Primary Care Provider: SALAZAR FINE MD [Primary Care Provider] - Follow up in 3-5 days Mode of Arrival: Ambulatory Information source: Patient, [facility] Records Notes: Patient presents to the emergency department with complaints of productive cough headache and neck pain for the past week. Reports she went out with a friend that had a cold and she caught it. Patient reports she is been taking some cough medicine with codeine to help control the cough but all it does not make her sleepy make her feel loopy. No complaints of fever vomiting diarrhea. Patient denies chest pain reports it only hurts when she coughs. TRAVEL OUTSIDE OF THE [place] IN LAST 30 DAYS: No - HPI Onset: Other Onset/Duration: Gradual, Persistent, Worse Quality of pain: Achy Severity: Mild Associated symptoms: Body/muscle aches, Productive cough, Headache. denies: Fever, Nausea, Vomiting, Shortness of breath Exacerbated by: Coughing Relieved by: Denies Similar symptoms previously: Yes Recently seen / treated by doctor: No - Related Data Allergies/Adverse Reactions: No Known Allergies Allergy (Verified 03/17/19 16:47) Past Medical History - General Information source: Patient - Social History Smoking Status: Never Smoker Chew tobacco use (# tins/day): No Frequency of alcohol use: None Drug Abuse: None Lives with: Alone Family History: Reviewed & Not Pertinent Patient has suicidal ideation: No Patient has homicidal ideation: No - Past Medical History Cardiac Medical History: Reports: Hx Hypertension - MEDICATED Denies: Hx Coronary Artery Disease, Hx Heart Attack Pulmonary Medical History: Denies: Hx Asthma, Hx Bronchitis, Hx COPD, Hx Pneumonia Neurological Medical History: Denies: Hx Cerebrovascular Accident, Hx Seizures Endocrine Medical History: Reports: Hx Diabetes Mellitus Type 1, Hx Hypothyroidism Renal/ Medical History: Denies: Hx Peritoneal Dialysis GI Medical History: Denies: Hx Ulcer Musculoskeletal Medical History: Reports Hx Arthritis Psychiatric Medical History: Reports: Hx Bipolar Disorder, Hx Depression - MANIC DEPRESSIVE Past Surgical History: Reports: Hx Abdominal Surgery - HIATAL HERNIA, Hx Hysterectomy, Hx Thyroid Surgery, Other - Polypectomy. Denies: Hx Mastectomy, Hx Open Heart Surgery, Hx Pacemaker - Immunizations Hx Diphtheria, Pertussis, Tetanus Vaccination: Yes Hx Pneumococcal Vaccination: 09/11/09 Review of Systems - Review of Systems Notes: REVIEW OF SYSTEMS: CONSTITUTIONAL : Denies fever, chills, or sweats. Denies recent illness. Denies weight loss, recent hospitalizations. EENT: Denies visual changes, eye pain. Denies sore throat, oral lesions, difficulty swallowing. CARDIOVASCULAR: Denies chest pain. Denies palpitations. Denies lower extremity edema. RESPIRATORY: + cough. Denies shortness of breath, wheezing. GASTROINTESTINAL: Denies abdominal pain or distention. Denies nausea, vomiting, or diarrhea. Denies blood in vomitus, stools, or per rectum. Denies black, tarry stools. Denies constipation. GENITOURINARY: Denies difficulty urinating, painful urination, frequency, blood in urine, or vaginal discharge. MUSCULOSKELETAL: Denies back or neck pain or stiffness. Denies joint pain or swelling. SKIN: Denies rash, lesions or sores. HEMATOLOGIC : Denies easy bruising or bleeding. LYMPHATIC: Denies swollen glands. NEUROLOGICAL: Denies confusion or altered mental status. Denies loss of consciousness. Denies dizziness or lightheadedness. + headache. Denies weakness or paralysis. Denies problems difficulty with ambulation, slurred speech. Denies sensory loss, numbness, or tingling. Denies seizures. PSYCHIATRIC: Denies anxiety or stress. Denies depression, suicidal ideation, or homicidal ideation. Denies visual or auditory hallucinations. Physical Exam - Vital signs Vitals: Temp Pulse Resp BP Pulse Ox 98.0 F 70 18 175/91 H 98 03/17/19 17:05 03/17/19 17:05 03/17/19 17:05 03/17/19 17:05 03/17/19 17:05 - Notes Notes: PHYSICAL EXAMINATION: GENERAL: Well-appearing, well-nourished and in no acute distress. HEAD: Atraumatic, normocephalic. EYES: Pupils equal round and reactive to light, extraocular movements intact, conjunctiva are normal. ENT: Nares patent, oropharynx clear without exudates. Moist mucous membranes. NECK: Normal range of motion, supple without lymphadenopathy LUNGS: Bilateral crackles in the lower lung [place]jo. No increased work of breathing. No accessory muscle use. Patient not hypoxic or dyspneic. HEART: Regular rate and rhythm without murmurs ABDOMEN: Soft, nontender, nondistended abdomen. No guarding, no rebound. No masses appreciated. Female : deferred Musculoskeletal: Normal range of motion, no pitting or edema. No cyanosis. NEUROLOGICAL: Cranial nerves grossly intact. Normal speech, normal gait. No rmal sensory, motor exams PSYCH: Normal mood, normal affect. SKIN: Warm, Dry, normal turgor, no rashes or lesions noted. Course - Re-evaluation Re-evalutation: Laboratory 03/17/19 03/17/19 18:50 18:50 WBC 4.5 RBC 4.21 Hgb 12.7 Hct 37.1 MCV 88 MCH 30.3 MCHC 34.3 RDW 12.4 Plt Count 226 Seg Neutrophils % 61.0 Lymphocytes % 28.8 Monocytes % 7.0 Eosinophils % 2.8 Basophils % 0.4 Absolute Neutrophils 2.7 Absolute Lymphocytes 1.3 Absolute Monocytes 0.3 Absolute Eosinophils 0.1 Absolute Basophils 0.0 Sodium 137.6 Potassium 5.0 Chloride 99 Carbon Dioxide 31 H Anion Gap 8 BUN 16 Creatinine 0.94 Est GFR ( Amer) > 60 Est GFR (Non-Af Amer) > 60 Glucose 91 Calcium 9.4 Total Bilirubin 0.2 Direct Bilirubin 0.1 Neonat Total Bilirubin Not Reportable Neonat Direct Bilirubin Not Reportable Neonat Indirect Bili Not Reportable AST 31 ALT 32 Alkaline Phosphatase 97 Total Protein 7.1 Albumin 4.4 Chest X-Ray 03/17/19 18:13 IMPRESSION: NO ACUTE RADIOGRAPHIC FINDING IN THE CHEST. Temp Pulse Resp BP Pulse Ox 97.9 F 59 L 22 H 177/91 H 98 03/17/19 20:12 03/17/19 20:12 03/17/19 20:12 03/17/19 20:12 03/17/19 20:12 03/19/19 11:14 Presentation is most consistent with a viral upper respiratory infection. Patient is overall well appearance, vitals within normal limits, well-hydrated. Patient has no evidence of meningismus on examination. Lungs with bilateral crackles. No evidence of respiratory distress. Based on clinical exam and history, meningitis, strep pharyngitis, or an acute encephalitis. Will discharge patient with doxycycline return precautions and followup re commendations. They are in agreement this plan have verbalized understanding return precautions. - Vital Signs Vital signs: Temp Pulse Resp BP Pulse Ox 97.9 F 59 L 22 H 177/91 H 98 03/17/19 20:12 03/17/19 20:12 03/17/19 20:12 03/17/19 20:12 03/17/19 20:12 - Laboratory Result Diagrams: 03/17/19 18:50 03/17/19 18:50 Laboratory results interpreted by me: 03/17/19 18:50 Carbon Dioxide 31 H - Diagnostic Test Radiology reviewed: Image reviewed, Reports reviewed Discharge - Discharge Clinical Impression: URI (upper respiratory infection) Qualifiers: URI type: unspecified URI Qualified Code(s): J06.9 - Acute upper respiratory infection, unspecified Condition: Good Disposition: HOME, SELF-CARE Instructions: Upper Respiratory Illness ([facility]) Additional Instructions: Follow up with your [id number] hours for further care or return to the ED IMMEDIATELY if symptoms worsen or you have any concerns. If you cannot afford to follow up with your primary care physician a list of low cost clinics have been provided at the end of your discharge papers as well. Most prescribed medications have multiple side effects. The safest thing to do is when filling your prescription speak to your pharmacist regarding possible interactions with your normal home medications and over the counter medications such as Ibuprofen, Tylenol, Benadryl. If you experience any symptoms that cause you discomfort or concern you should discontinue the medication immediately and return to the emergency room or call your primary care physician. Prescriptions: Doxycycline Hyclate 100 mg PO BID #14 capsule Forms: Elevated Blood Pressure Referrals: SALAZAR FINE MD [Primary Care Provider] - Follow up in 3-5 days
[2019-03-17 20:19] VITALS: BP 177/91
== END 2019-03-17 20:34 | disposition home or self-care (01) ==
LOC: ER 16:46
DX: J06.9 Acute upper respiratory infection, unspecified (principal); R09.89 Other specified symptoms and signs involving the circulatory and respiratory systems; R05 Cough; R51 Headache; M54.2 Cervicalgia; M79.10 Myalgia, unspecified site; I10 Essential (primary) hypertension; Z79.899 Other long term (current) drug therapy; E10.9 Type 1 diabetes mellitus without complications
CPT/HCPCS: 99283; 36415; 85025; 80053; 71046; A9270 ×2; J3490; J7620

== ENCOUNTER 2019-09-28 06:32 | Emergency (ER) | payer MEDICARE, OTHER ==
[2019-09-28] MEDS ORDERED: MECLIZINE HCL 25 MG TABLET PO ONE (08:26)
[2019-09-28 09:18] LABS: ABSOLUTE EOSINOPHILS # (AUTO) 0.1 10^3/uL (0.0-0.6); EOSINOPHILS % (AUTO) 1.4 % (0-6); MEAN CORPUSCULAR HGB CONC 34.5 g/dL (32.0-36.0); TOTAL CELLS COUNTED % (AUTO) 100 %
[2019-09-28 09:32] LABS: ABSOLUTE LYMPHOCYTES (AUTO) 0.8 10^3/uL (0.5-4.7); ABSOLUTE MONOCYTES (AUTO) 0.2 10^3/uL (0.1-1.4); ABSOLUTE NEUT (AUTO) 3.1 10^3/uL (1.7-8.2); BASOPHILS % (AUTO) 0.4 % (0-2); HEMATOCRIT 39.7 % (36.0-47.0); HEMOGLOBIN 13.7 g/dL (12.0-15.5); LYMPHOCYTES % (AUTO) 19.8 % (13-45); MEAN CORPUSCULAR HEMOGLOBIN 30.1 pg (27.0-33.4); MEAN CORPUSCULAR VOLUME 87 fl (80-97); MONOCYTES % (AUTO) 5.5 % (3-13); PLATELET COUNT 221 10^3/uL (150-450); RED BLOOD COUNT 4.56 10^6/uL (3.72-5.28); RED CELL DISTRIBUTION WIDTH 12.9 % (11.5-14.0); SEGMENTED NEUTROPHILS % (AUTO) 72.9 % (42-78); WHITE BLOOD COUNT 4.3 10^3/uL (4.0-10.5)
[2019-09-28 09:34] LABS: ALBUMIN 4.3 g/dL (3.5-5.0); ALKALINE PHOSPHATASE 93 U/L (38-126); ANION GAP 11 (5-19); ASPARTATE AMINO TRANSFERASE 28 U/L (14-36); BILIRUBIN,DIRECT 0.2 mg/dL (0.0-0.4); BILIRUBIN,TOTAL 0.4 mg/dL (0.2-1.3); BLOOD UREA NITROGEN 19 mg/dL (7-20); CALCIUM 9.5 mg/dL (8.4-10.2); CARBON DIOXIDE 29 mmol/L (22-30); CHLORIDE 102 mmol/L (98-107); GLUCOSE 139 mg/dL (75-110); POTASSIUM 3.8 mmol/L (3.6-5.0); TOTAL PROTEIN 7.4 g/dL (6.3-8.2)
--- NOTE | 2019-09-28 10:17 | RADIOLOGY REPORT (SQ) ---
EXAM DESCRIPTION: CT HEAD WITHOUT COMPLETED DATE/TIME: 09/28/2019 10:04 am REASON FOR STUDY: vertigo COMPARISON: None. TECHNIQUE: Axial images acquired through the brain without intravenous contrast. Images reviewed wi th bone, brain and subdural windows. Additional sagittal and coronal reconstructions were generated. Images stored on PACS. All CT scanners at this facility use dose modulation, iterative reconstruction, and/or weight based d osing when appropriate to reduce radiation dose to as low as reasonably achievable (ALARA). [facility]: Dose Right [facility]: CareDose [facility]: Dose Right [facility]: Teradose 4D [facility]: IfOnly RADIATION DOSE: CT Rad equipment meets quality standard of care and radiation dose reduction techniq ues were employed. CTDIvol: 53.2 mGy. DLP: 964 mGy-cm. mGy. LIMITATIONS: None. FINDINGS: VENTRICLES: Normal size and contour. CEREBRUM: No masses. No hemorrhage. No midline shift. No evidence for acute infarction. Normal gra y/white matter differentiation. No areas of low density in the white matter. CEREBELLUM: No masses. No hemorrhage. No alteration of density. No evidence for acute infarction. EXTRAAXIAL SPACES: No fluid collections. No masses. ORBITS AND GLOBE: No intra- or extraconal masses. Normal contour of globe without masses. CALVARIUM: No fracture. PARANASAL SINUSES: No fluid or mucosal thickening. SOFT TISSUES: No mass or hematoma. OTHER: No other significant finding. IMPRESSION: NORMAL BRAIN CT WITHOUT CONTRAST. EVIDENCE OF ACUTE STROKE: NO. COMMENT: Quality ID # [id number]: Final reports with documentation of one or more dose reduction techniques (e.g., Automated exposure control, adjustment of the mA and/or kV according to patient size, use of iterative reconstruction technique) TECHNICAL DOCUMENTATION: JOB ID: [id number] [employer]- All Rights Reserved Reading location - IP/workstation name: [email or web address]
[2019-09-28 10:55] VITALS: BP 144/84
--- NOTE | 2019-09-28 19:27 | EKG REPORT ---
SEVERITY:- ABNORMAL ECG - SINUS RHYTHM PROBABLE LVH WITH SECONDARY REPOL ABNRM : Confirmed by: Rachel Batres MD 28-Sep-2019 19:27:06
--- NOTE | 2019-09-30 08:24 | ER Document Report ---
Entered by LASHAE OSWALD SCRIBE 09/28/19 0819 Acting as scribe for:YO BROUSSARD IV, MD ED Dizziness/Weakness - General Chief Complaint: Vertigo Stated Complaint: DIZZINESS Time Seen by Provider: 09/28/19 08:03 Primary Care Provider: SALAZAR FINE MD [Primary Care Provider] - 09/30/19 Mode of Arrival: Ambulatory Notes: This 68-year-old female patient presents to the emergency department today with complaints of dizziness. Patient states she thinks she has vertigo. Patient had a similar episode a couple years ago and she was told her "electrolytes were all out of whack". Patient states she has been excessively drinking water and now she has recently been doing the same thing. Patient states she was told her "kidney function was down" and was told to drink more water so she has been drinking approximately 20 bottles of water a day. TRAVEL OUTSIDE OF THE [place] IN LAST 30 DAYS: No - Related Data Allergies/Adverse Reactions: No Known Allergies Allergy (Verified 03/17/19 16:47) Past Medical History - General Information source: Patient - Social History Smoking Status: Never Smoker Cigarette use (# per day): No Frequency of alcohol use: None Drug Abuse: None Lives with: Family Family History: Reviewed & Not Pertinent Patient has suicidal ideation: No Patient has homicidal ideation: No - Past Medical History Cardiac Medical History: Reports: Hx Hypertension - MEDICATED Endocrine Medical History: Reports: Hx Diabetes Mellitus Type 1, Hx Hypothyroidism Musculoskeletal Medical History: Reports Hx Arthritis Psychiatric Medical History: Reports: Hx Bipolar Disorder, Hx Depression - MANIC DEPRESSIVE Past Surgical History: Reports: Hx Abdominal Surgery - HIATAL HERNIA, Hx Hysterectomy, Hx Thyroid Surgery, Other - Polypectomy - Immunizations Hx Diphtheria, Pertussis, Tetanus Vaccination: Yes Hx Pneumococcal Vaccination: 09/11/09 Review of Systems - Review of Systems Constitutional: No symptoms reported EENT: No symptoms reported Cardiovascular: See HPI, Dizziness, Lightheaded Respiratory: No symptoms reported Gastrointestinal: No symptoms reported Genitourinary: No symptoms reported Female Genitourinary: No symptoms reported Musculoskeletal: No symptoms reported Skin: No symptoms reported Hematologic/Lymphatic: No symptoms reported Neurological/Psychological: No symptoms reported -: Yes All other systems reviewed and negative Physical Exam - Vital signs Vitals: Temp Pulse Resp BP Pulse Ox 98.1 F 68 16 151/76 H 100 09/28/19 06:43 09/28/19 06:43 09/28/19 06:43 09/28/19 06:43 09/28/19 06:43 Interpretation: Normal - General General appearance: Appears well, Alert - HEENT Head: Normocephalic, Atraumatic Eyes: Normal Pupils: PERRL - Respiratory Respiratory status: No respiratory distress Chest status: Nontender Breath sounds: Normal Chest palpation: Normal - Cardiovascular Rhythm: Regular Heart sounds: Normal auscultation Murmur: No - Abdominal Inspection: Normal Distension: No distension Bowel sounds: Normal Tenderness: Nontender Organomegaly: No organomegaly - Back Back: Normal, Nontender - Extremities General upper extremity: Normal inspection, Nontender, Normal color, Normal ROM, Normal temperature General lower extremity: Normal inspection, Nontender, Normal color, Normal ROM, Normal temperature, Normal weight bearing. No: Amelia's sign - Neurological Neuro grossly intact: Yes Cognition: Normal Orientation: AAOx4 Speed[place] Coma Scale Eye Opening: Spontaneous [place] Coma Scale Verbal: Oriented [place] Coma Scale Motor: Obeys Commands [place] Coma Scale Total: 15 Speech: Normal Motor strength normal: LUE, RUE, LLE, RLE Sensory: Normal - Psychological Associated symptoms: Normal affect, Normal mood - Skin Skin Temperature: Warm Skin Moisture: Dry Skin Color: Normal Course - Vital Signs Vital signs: Temp Pulse Resp BP Pulse Ox 97.9 F 64 16 144/84 H 99 09/28/19 10:54 09/28/19 10:54 09/28/19 10:54 09/28/19 10:54 09/28/19 10:54 - Laboratory Result Diagrams: 09/28/19 09:07 09/28/19 09:07 Laboratory results interpreted by me: 09/28/19 09:07 Est GFR (MDRD) Non-Af 50 L Glucose 139 H - Diagnostic Test Radiology reviewed: Reports reviewed - EKG Interpretation by Me Additional EKG results interpreted by me: 09/28/19 10:40 EKG obtained on 09/28/2019 at 0852 hrs. was reviewed by this MD. Findings: Normal sinus rhythm rate of 60, normal axis, P waves preceding QRS complexes, QRS complexes appear narrow, there are no obvious patterns of ST segment elevation or depression present to suggest acute myocardial ischemia or infarction. Impression normal sinus rhythm with nonspecific ST segments. Discharge - Discharge Clinical Impression: Orthostatic hypotension Peripheral vertigo, unspecified Qualifiers: Laterality: unspecified laterality Qualified Code(s): H81.399 - Other peripheral vertigo, unspecified ear Condition: Good Disposition: HOME, SELF-CARE Additional Instructions: Return to the Emergency Department without delay if any worse. HOME CARE INSTRUCTIONS & INFORMATION: Thank you for choosing us for your medical needs. We hope you're satisfied with the care you received. After you leave, you must properly care for your problem and, at the same time, observe its progress. Any condition can change. Some illnesses can change rapidly over hours or days. If your condition worsens, return to the Emergency Department or see your physician promptly. ABOUT YOUR X-RAYS AND EKG'S: If you had an EKG or X-rays taken, they have been read by the Emergency Physician. The X-rays and EKG's will also be read by a Radiologist or Bus Escort within 24 hours. If discrepancies are noted, you will be notified by telephone. Please be certain the ED has a correct telephone number & address where you can be reached. Also, realize that some fractures or abnormalities do not show up on initial X-rays. If your symptoms continue, see your physician. ABOUT YOUR LABORATORY TEST: If you had laboratory tests, the results have been reviewed by the Emergency Physician. Some test results (for example cultures) may not be available for several days. You will be contacted if any test result shows you need additional treatment. Please be certain the ED has a correct telephone number and address where you can be reached. ABOUT YOUR MEDICATIONS: You will receive instructions on how to take your medicine on the prescription label you receive. Additional information may be provided by the Pharmacy. If you have questions afterwards, call the ED for clarification or further instructions. Some prescribed medications may cause drowsiness. Do not perform tasks such as driving a car or operating machinery without consulting your Pharmacist. If you feel you need a refill of pain medication, your condition will need re-evaluation. Please do not call for a refill of any medication. ABOUT YOUR SIGNATURE: Signature of this document acknowledges to followin. Understanding that you received emergency treatment and that you may be released before al medical problems are known or treated. Please be certain the ED has a correct phone number & address where you can be reached. 2. Acknowledgement that you will arrange for follow-up care as recommended. 3. Authorization for the Emergency Physician to provide information to your follow-up Physician in order to maximize your care. AT ANY TIME, IF YOUR SYMPTOMS CHANGE SIGNIFICANTLY OR WORSEN OR YOU DEVELOP NEW SYMPTOMS, RETURN TO THE EMERGENCY DEPARTMENT IMMEDIATELY FOR RE-EVALUATION. OUR GOAL IS TO PROVIDE EXCELLENT MEDICAL CARE! WE HOPE THAT WE HAVE MET YOUR EXPECTATIONS DURING YOUR EMERGENCY DEPARTMENT VISIT AND THAT YOU FEEL YOU HAVE RECEIVED EXCELLENT CARE! Vertigo You have experienced an episode of vertigo -- a whirling dizziness which may be accompanied by nausea and vomiting or staggering. Vertigo is often caused by an irritation of the inner ear, in which case it is called labyrinthitis. It can also be a symptom of a degenerating inner ear, nerve damage, or brain injury. Your physician has evaluated you to determine whether any further testing is necessary. Vertigo is often treated with dramamine or meclizine. These medications are helpful, but stronger medication may be needed if you are vomiting. Rest in bed. You should not drive or operate machinery until completely better. It may take one to three weeks for recovery. If there are new symptoms, such as decreased hearing or vision, severe headache, weakness or faintness, or confusion, call the physician.Orthostatic Hypotension You have orthostatic hypotension. Your blood pressure goes down when you stand up. Symptoms can include dizziness, transient loss of vision, ringing in the ears, nausea, and fainting. At this time, there's no evidence of a serious problem requiring hospitalization. Orthostatic hypotension can be caused by dehydration, poor nutrition, over-exercise, or medication. For some people, orthostatic hypotension is an ongoing problem, and no cause can be found. We usually treat orthostatic hypotension with fluids. We look for a treatable cause. If no cause was found, you should get enough rest, exercise moderately, and get plenty of fluids. When you feel the first symptoms suggesting you might faint, sit or squat down as quickly as you can. If symptoms don't go away quickly, lie down. Call the doctor or return if you are worsening or if new symptoms develop. Prescriptions: Meclizine HCl [Antivert 25 mg Tablet] 25 mg PO TID PRN #21 tablet PRN Reason: Blood Pressure Test Kit [Blood Pressure Kit] 1 kit MC DAILY PRN #1 kit PRN Reason: Referrals: SALAZAR FINE MD [Primary Care Provider] - 09/30/19 I personally performed the services described in the documentation, reviewed and edited the documentation which was dictated to the scribe in my presence, and it accurately records my words and actions.
== END 2019-09-28 10:54 | disposition home or self-care (01) ==
LOC: ER 06:32
DX: H81.399 Other peripheral vertigo, unspecified ear (principal); I95.1 Orthostatic hypotension; I10 Essential (primary) hypertension
CPT/HCPCS: 93005; 99284; 36415; 83735; 85025; 80053; 84484; 70450; 93010; A9270

== ENCOUNTER 2020-06-06 16:04 | Emergency (ER) | payer MEDICARE, OTHER ==
--- NOTE | 2020-06-06 16:29 | ER Document Report ---
ED Medical Screen (RME) - General TRAVEL OUTSIDE OF THE [place] IN LAST 30 DAYS: No <LUCINDA ARRINGTON - Last Filed: 06/06/20 16:27> <JOANSALAZAR Moni MARTE - Last Filed: 06/06/20 18:16> - General Chief Complaint: Headache >24 hrs old Stated Complaint: HEADACHE Time Seen by Provider: 06/06/20 16:19 Primary Care Provider: SALAZAR FINE MD [Primary Care Provider] - Follow up as needed - [facility] Notes: 06/06/20 16:27 69-year-old female to the emergency department with complaints of bilateral headache behind the eyes has been going on for 2 weeks. She states is been getting progressively worse. She has phonophobia, photophobia with this head ache. She states she is never had a headache like this before. She states it really hurts behind her left eye. She states that she has not had any chest pain or shortness of breath. She denies any sore throat, nasal congestion, cough. Patient has a history of high blood pressure and takes lisinopril at night. Family history of brain tumor in her sister. I performed a brief medical screening exam on the patient determined that the patient needs further evaluation and management by main side provider. I have placed initial orders to help expedite care. (LUCINDA ARRINGTON) - Related Data Allergies/Adverse Reactions: No Known Allergies Allergy (Verified 06/06/20 16:22) Past Medical History - Past Medical History Cardiac Medical History: Reports: Hx Hypertension - MEDICATED Denies: Hx Coronary Artery Disease, Hx Heart Attack Pulmonary Medical History: Denies: Hx Asthma, Hx Bronchitis, Hx COPD, Hx Pneumonia Neurological Medical History: Denies: Hx Cerebrovascular Accident, Hx Seizures Endocrine Medical History: Reports: Hx Diabetes Mellitus Type 1, Hx Hypothyroidi sm Renal/ Medical History: Denies: Hx Peritoneal Dialysis GI Medical History: Denies: Hx Ulcer Musculoskeltal Medical History: Reports Hx Arthritis Psychiatric Medical History: Reports: Hx Bipolar Disorder, Hx Depression - MANIC DEPRESSIVE Past Surgical History: Reports: Hx Abdominal Surgery - HIATAL HERNIA, Hx Hysterectomy, Hx Thyroid Surgery, Other - Polypectomy. Denies: Hx Mastectomy, Hx Open Heart Surgery, Hx Pacemaker - Immunizations Hx Diphtheria, Pertussis, Tetanus Vaccination: Yes <LUCINDA ARRINGTON - Last Filed: 06/06/20 16:27> Physical Exam - Vital signs Vitals: Temp Pulse Resp BP Pulse Ox 98.2 F 70 18 173/83 H 96 06/06/20 16:14 06/06/20 16:14 06/06/20 16:14 06/06/20 16:14 06/06/20 16:14 Course - Laboratory Result Diagrams: 06/06/20 16:40 06/06/20 16:40 <SALAZAR FRANCO JR - Last Filed: 06/06/20 18:16> - Vital Signs Vital signs: Temp Pulse Resp BP Pulse Ox 98.2 F 70 18 173/83 H 96 06/06/20 16:14 06/06/20 16:14 06/06/20 16:14 06/06/20 16:14 06/06/20 16:14 - Laboratory Laboratory results interpreted by me: 06/06/20 16:40 Sodium 136.7 L BUN 25 H Est GFR (MDRD) Non-Af 55 L Doctor's Discharge <LUCINDA ARRINGTON - Last Filed: 06/06/20 16:27> <SALAZAR FRANCO JR - Last Filed: 06/06/20 18:16> - Discharge Referrals: SALAZAR FINE MD [Primary Care Provider] - Follow up as needed
[2020-06-06 16:58] LABS: ABSOLUTE EOSINOPHILS # (AUTO) 0.1 10^3/uL (0.0-0.6); ABSOLUTE LYMPHOCYTES (AUTO) 1.2 10^3/uL (0.5-4.7); ABSOLUTE MONOCYTES (AUTO) 0.5 10^3/uL (0.1-1.4); ABSOLUTE NEUT (AUTO) 3.5 10^3/uL (1.7-8.2); BASOPHILS % (AUTO) 0.3 % (0-2); HEMATOCRIT 37.1 % (36.0-47.0); HEMOGLOBIN 12.9 g/dL (12.0-15.5); LYMPHOCYTES % (AUTO) 22.2 % (13-45); MEAN CORPUSCULAR HEMOGLOBIN 30.5 pg (27.0-33.4); MEAN CORPUSCULAR HGB CONC 34.6 g/dL (32.0-36.0); MEAN CORPUSCULAR VOLUME 88 fl (80-97); MONOCYTES % (AUTO) 8.9 % (3-13); PLATELET COUNT 228 10^3/uL (150-450); RED BLOOD COUNT 4.21 10^6/uL (3.72-5.28); RED CELL DISTRIBUTION WIDTH 12.1 % (11.5-14.0); SEGMENTED NEUTROPHILS % (AUTO) 66.6 % (42-78); TOTAL CELLS COUNTED % (AUTO) 100 %; WHITE BLOOD COUNT 5.2 10^3/uL (4.0-10.5)
[2020-06-06 17:10] LABS: ALBUMIN 4.5 g/dL (3.5-5.0); ALKALINE PHOSPHATASE 84 U/L (38-126); ANION GAP 8 (5-19); ASPARTATE AMINO TRANSFERASE 24 U/L (14-36); BILIRUBIN,DIRECT 0.3 mg/dL (0.0-0.4); BILIRUBIN,TOTAL 0.3 mg/dL (0.2-1.3); BLOOD UREA NITROGEN 25 mg/dL (7-20); CALCIUM 9.4 mg/dL (8.4-10.2); CARBON DIOXIDE 29 mmol/L (22-30); CHLORIDE 100 mmol/L (98-107); GLUCOSE 97 mg/dL (75-110); POTASSIUM 4.8 mmol/L (3.6-5.0)
--- NOTE | 2020-06-06 17:19 | RADIOLOGY REPORT (SQ) ---
EXAM DESCRIPTION: CT HEAD WITHOUT IMAGES COMPLETED DATE/TIME: 06/06/2020 5:08 pm REASON FOR STUDY: headache for two weeks COMPARISON: 09/28/2019. TECHNIQUE: Axial images acquired through the brain without intravenous contrast. Images reviewed wi th bone, brain and subdural windows. Additional sagittal and coronal reconstructions were generated. Images stored on PACS. All CT scanners at this facility use dose modulation, iterative reconstruction, and/or weight based d osing when appropriate to reduce radiation dose to as low as reasonably achievable (ALARA). [facility]: Dose Right [facility]: CareDose [facility]: Dose Right [facility]: Teradose 4D [facility]: [employer] RADIATION DOSE: CT Rad equipment meets quality standard of care and radiation dose reduction techniq ues were employed. CTDIvol: 53.2 mGy. DLP: 964 mGy-cm. mGy. LIMITATIONS: None. FINDINGS: VENTRICLES: Normal size and contour. CEREBRUM: No masses. No hemorrhage. No midline shift. No evidence for acute infarction. Normal gra y/white matter differentiation. No areas of low density in the white matter. CEREBELLUM: No masses. No hemorrhage. No alteration of density. No evidence for acute infarction. EXTRAAXIAL SPACES: No fluid collections. No masses. ORBITS AND GLOBE: No intra- or extraconal masses. Normal contour of globe without masses. CALVARIUM: No fracture. PARANASAL SINUSES: No fluid. Mucous retention cyst in the floor of the right maxillary sinus. SOFT TISSUES: No mass or hematoma. OTHER: No other significant finding. IMPRESSION: NORMAL BRAIN CT WITHOUT CONTRAST. EVIDENCE OF ACUTE STROKE: NO. COMMENT: Quality ID # [id number]: Final reports with documentation of one or more dose reduction techniques (e.g., Automated exposure control, adjustment of the mA and/or kV according to patient size, use of iterative reconstruction technique) TECHNICAL DOCUMENTATION: JOB ID: [id number] 2010 [email or web address]- All Rights Reserved Reading location - IP/workstation name: [email or web address]
--- NOTE | 2020-06-06 19:32 | ER Document Report ---
ED General - General Chief Complaint: Headache >24 hrs old Stated Complaint: HEADACHE Time Seen by Provider: 06/06/20 16:19 Primary Care Provider: SALAZAR FINE MD [Primary Care Provider] - Follow up as needed Mode of Arrival: Ambulatory Information source: Patient Notes: ED Medical Screen (Synder Notes ) - General TRAVEL OUTSIDE OF THE [place] IN LAST 30 DAYS: No <LUCINDA ARRINGTON - Last Filed: 06/06/20 16:27> <SALAZAR FRANCO JR - Last Filed: 06/06/20 18:16> - General Chief Complaint: Headache >24 hrs old Stated Complaint: HEADACHE Time Seen by Provider: 06/06/20 16:19 Primary Care Provider: SALAZAR FINE MD [Primary Care Provider] - Follow up as needed - HPI Notes: 06/06/20 16:27 69-year-old female to the emergency department with complaints of bilateral headache behind the eyes has been going on for 2 weeks. She states is been getting progressively worse. She has phonophobia, photophobia with this head ache. She states she is never had a headache like this before. She states it really hurts behind her left eye. She states that she has not had any chest pain or shortness of breath. She denies any sore throat, nasal congestion, cough. Patient has a history of high blood pressure and takes lisinopril at night. Family history of brain tumor in her sister. I performed a brief medical screening exam on the patient determined that the patient needs further evaluation and management by main side provider. I have placed initial orders to help expedite care. MY NOTES 69-year-old female arrives with severe diffuse frontal "behind the eye "headache for 2 weeks. Patient denies any earache sore throat rhinorrhea coronavirus exposure. Patient had a port in her left chest several years ago because of thyroid cancer but has been doing well since. Patient also has a history of hypertension and takes lisinopril at bedtime. She wanted know whether she had any tumors on her CT and I advised her know only some maxillary sinus problem. Patient denies any nausea vomiting nuchal rigidity trauma abuse skin rash spider bite animal bite human bite heavy metal exposure radiation TRAVEL OUTSIDE OF THE [place] IN LAST 30 DAYS: No - HPI Onset: Last week Onset/Duration: Sudden, Persistent, Worse Quality of pain: Achy Severity: Moderate Pain Level: 3 Associated symptoms: Headache Exacerbated by: Movement Relieved by: Denies Similar symptoms previously: No Recently seen / treated by doctor: No - Related Data Allergies/Adverse Reactions: No Known Allergies Allergy (Verified 06/06/20 16:22) Past Medical History - General Information source: Patient - Social History Smoking Status: Never Smoker Cigarette use (# per day): No Chew tobacco use (# tins/day): No Smoking Education Provided: No Frequency of alcohol use: None Drug Abuse: None Lives with: Family Family History: Reviewed & Not Pertinent Patient has suicidal ideation: No Patient has homicidal ideation: No - Past Medical History Cardiac Medical History: Reports: Hx Hypertension - MEDICATED Denies: Hx Coronary Artery Disease, Hx Heart Attack Pulmonary Medical History: Denies: Hx Asthma, Hx Bronchitis, Hx COPD, Hx Pneumonia Neurological Medical History: Denies: Hx Cerebrovascular Accident, Hx Seizures Endocrine Medical History: Reports: Hx Diabetes Mellitus Type 1, Hx Hypothyroidism Renal/ Medical History: Denies: Hx Peritoneal Dialysis GI Medical History: Denies: Hx Ulcer Musculoskeletal Medical History: Reports Hx Arthritis Psychiatric Medical History: Reports: Hx Bipolar Disorder, Hx Depression - MANIC DEPRESSIVE Past Surgical History: Reports: Hx Abdominal Surgery - HIATAL HERNIA, Hx Hysterectomy, Hx Thyroid Surgery, Other - Polypectomy. Denies: Hx Mastectomy, Hx Open Heart Surgery, Hx Pacemaker - Immunizations Hx Diphtheria, Pertussis, Tetanus Vaccination: Yes Hx Pneumococcal Vaccination: 09/11/09 Review of Systems - Review of Systems Constitutional: No symptoms reported EENT: See HPI, Eye pain Cardiovascular: No symptoms reported Respiratory: No symptoms reported Gastrointestinal: No symptoms reported Genitourinary: No symptoms reported Female Genitourinary: No symptoms reported Musculoskeletal: No symptoms reported Skin: No symptoms reported Hematologic/Lymphatic: No symptoms reported Neurological/Psychological: No symptoms reported Physical Exam - Vital signs Vitals: Temp Pulse Resp BP Pulse Ox 98.2 F 70 18 173/83 H 96 06/06/20 16:14 06/06/20 16:14 06/06/20 16:14 06/06/20 16:14 06/06/20 16:14 Interpretation: Hypertensive - General General appearance: Appears well - HEENT Head: Normocephalic, Atraumatic Eyes: Normal Pupils: PERRL Mouth/Lips: Normal Mucous membranes: Normal Pharynx: Normal Neck: Normal - Respiratory Respiratory status: No respiratory distress Chest status: Nontender Breath sounds: Normal Chest palpation: Normal - Cardiovascular Rhythm: Regular Heart sounds: Normal auscultation Murmur: No - Abdominal Inspection: Normal Distension: No distension Bowel sounds: Normal Tenderness: Nontender Organomegaly: No organomegaly - Rectal Hemorrhoids: Other - deferred - Genitourinary Bimanuel exam: Other - deferred - Back Back: Normal - Extremities General upper extremity: Normal inspection, Nontender, Normal color, Normal ROM, Normal temperature General lower extremity: Normal inspection, Nontender, Normal color, Normal ROM, Normal temperature, Normal weight bearing. No: Amelia's sign - Neurological Neuro grossly intact: Yes Cognition: Normal Orientation: AAOx4 [place] Coma Scale Eye Opening: Spontaneous [place] Coma Scale Verbal: Oriented [place] Coma Scale Motor: Obeys Commands [place] Coma Scale Total: 15 Speech: Normal Motor strength normal: LUE, RUE, LLE, RLE Sensory: Normal - Psychological Associated symptoms: Anxious - Skin Skin Temperature: Warm Skin Moisture: Dry Skin Color: Normal Course - Vital Signs Vital signs: Temp Pulse Resp BP Pulse Ox 98.2 F 70 18 173/83 H 96 06/06/20 16:14 06/06/20 16:14 06/06/20 16:14 06/06/20 16:14 06/06/20 16:14 - Laboratory Result Diagrams: 06/06/20 16:40 06/06/20 16:40 Laboratory results interpreted by me: 06/06/20 16:40 Sodium 136.7 L BUN 25 H Est GFR (MDRD) Non-Af 55 L - Diagnostic Test Radiology reviewed: Reports reviewed Discharge - Discharge Clinical Impression: Headache Qualifiers: Headache type: other headache syndrome Qualified Code(s): G44.89 - Other headache syndrome Condition: Stable Disposition: HOME, SELF-CARE Additional Instructions: Follow-up with personal doctor this week return to ER as needed take medicines as directed encourage fluids apply Bactroban to nose nightly for 5 nights Prescriptions: Mupirocin [Bactroban 2% Ointment 22 gm] 1 applic TP QHS #1 tube Referrals: SALAZAR FINE MD [Primary Care Provider] - Follow up as needed
--- NOTE | 2020-06-06 19:52 | RADIOLOGY REPORT (SQ) ---
EXAM DESCRIPTION: MRI HEAD WITHOUT IMAGES COMPLETED DATE/TIME: 06/06/2020 7:39 pm REASON FOR STUDY: headache COMPARISON: None. TECHNIQUE: Multiplanar imaging includes non-contrasted T1, T2, FLAIR, and diffusion with ADC map seq uences. Images stored on PACS. LIMITATIONS: None. FINDINGS: ANATOMY: No anomalies. Normal vascular flow voids. Pituitary fossa normal. CSF SPACES: Normal in size and contour. No hemorrhage. CEREBRUM: Sulci and gyri normal in size and contour. Age-appropriate white matter signal on FLAIR im aging. No evidence of hemorrhage, mass, or extraaxial fluid collection. POSTERIOR FOSSA: No signal alteration. No hemorrhage. No edema, masses or mass effect. Internal luis tory canals, cerebello-pontine angles, mastoids normal. DIFFUSION IMAGING: Negative for acute or sub-acute infarction. ORBITS: No masses. Globes normal. PARANASAL SINUSES: No fluid levels. Small right maxillary mucous retention cyst. OTHER: No other significant finding. IMPRESSION: Negative for acute or sub-acute infarction. Age-appropriate exam. EVIDENCE OF ACUTE STROKE: NO. TECHNICAL DOCUMENTATION: JOB ID: [id number] 2010 [employer]- All Rights Reserved Reading location - IP/workstation name: [email or web address]
[2020-06-06] MEDS ORDERED: HYDROCODONE/ACETAMINOPHEN 5-325 MG (6 TAB/ER DISP) PO PRN (20:07)
[2020-06-06] MEDS ORDERED: ONDANSETRON ODT 4 MG TAB (6 TAB/ER DISP) PO PRN (20:08)
[2020-06-06 20:41] VITALS: BP 162/74
== END 2020-06-06 20:41 | disposition home or self-care (01) ==
LOC: ER 16:04
DX: G44.89 Other headache syndrome (principal); J34.1 Cyst and mucocele of nose and nasal sinus; H57.10 Ocular pain, unspecified eye; I10 Essential (primary) hypertension; H53.149 Visual discomfort, unspecified; Z79.899 Other long term (current) drug therapy
CPT/HCPCS: 99284; 36415; 85025; 80053; 70551; 70450; A9270 ×2